=== PATIENT | female | born 1990 | race Two or more races ===

== ENCOUNTER 2019-09-25 11:55 | Emergency (ER) | payer OTHER ==
[~2019-09-25] VITALS: Ht 149.9 cm; Wt 69.0 kg
--- NOTE | 2019-09-25 12:21 | NUR ---
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
--- NOTE | 2019-09-25 12:23 | NUR ---
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
--- NOTE | 2019-09-25 12:44 | NUR ---
Patient resting comfortably in room, patient offered warm blanket, blanket declined. Awaiting assessment from provider. Patient agreeable.
--- NOTE | 2019-09-25 13:45 | NUR ---
PT RESITNG IN [facility]. VSS. NAD. UA SENT
[2019-09-25 14:05] LABS: MICROSCOPIC INDICATED
[2019-09-25 14:06] LABS: CULTURE INDICATED? YES
[2019-09-25 14:12] LABS: ALANINE AMINOTRANSFERASE 39 U/L (12-78); ALBUMIN 3.5 g/dL (3.4-5.0); ANION GAP 6 mmol/L (5-15); BASOPHILS # (AUTO) 0.01 x10^3/uL (0-0.1); BASOPHILS % (AUTO) 0 % (0-1); CALCIUM 8.7 mg/dL (8.5-10.1); CHLORIDE 109 mmol/L (98-107); CREATININE 0.64 mg/dL (0.55-1.02); EOSINOPHILS # (AUTO) 0.13 x10^3/uL (0-0.4); EOSINOPHILS % (AUTO) 3 % (1-7); LYMPHOCYTES # (AUTO) 1.78 x10^3/uL (1-3.4); LYMPHOCYTES % (AUTO) 38 % (22-44); MD NO; MEAN CORPUSCULAR HEMOGLOBIN 29.7 pg (27.0-34.8); MEAN CORPUSCULAR HGB CONC 33.4 g/dL (32.4-35.8); MEAN CORPUSCULAR VOLUME 88.8 fL (80-100); MEAN PLATELET VOLUME 7.6 fL (7.4-10.4); MONOCYTES # (AUTO) 0.37 x10^3/uL (0.2-0.8); MONOCYTES % (AUTO) 8 % (2-9); NEUTROPHILS # (AUTO) 2.36 x10^3/uL (1.8-6.8); NEUTROPHILS % (AUTO) 51 % (42-75); PLATELET COUNT 305 x10^3/uL (130-400); RED BLOOD COUNT 4.47 x10^6/uL (3.82-5.3); RED CELL DISTRIBUTION WIDTH 12.7 % (9.6-15.2)
[2019-09-25 14:17] LABS: ALKALINE PHOSPHATASE 79 U/L (45-117); BILIRUBIN,TOTAL 0.4 mg/dL (0.2-1.0); TOTAL PROTEIN 7.4 g/dL (6.4-8.2)
--- NOTE | 2019-09-25 14:48 | NUR ---
REPORT RECEIVED FROM KAT [facility]. ASSUMED CARE
[2019-09-25 15:06] VITALS: BP 100/75
== END 2019-09-25 15:08 | disposition home or self-care (01) ==
LOC: ED 15:00
DX: R11.0 Nausea (principal); R19.7 Diarrhea, unspecified; R10.9 Unspecified abdominal pain; M79.10 Myalgia, unspecified site
CPT/HCPCS: 36415; 80053; 81001; 83690; 84703; 85025; 87086; 99283